=== PATIENT | male | born 1985 | race Caucasian/White ===

== ENCOUNTER → 2018-04-19 | Outpatient (CLI) | payer OTHER ==
[~2018-04-19] MED LIST: ISOVUE-370 76% 100ML VIAL (Q9967) As Ordered
== END ==
LOC: M RAD 09:50
DX: R59.0 Localized enlarged lymph nodes (principal)
CPT/HCPCS: Q9967

== ENCOUNTER 2018-06-05 05:31 | Day surgery (SDC) | payer OTHER ==
[2018-06-05] MEDS ORDERED: LIDOCAINE 2% INJ 100 MG/5 ML SDV (FOR ANES.) As Ordered ×2 (06:15)
[2018-06-05] MEDS ORDERED: ROCURONIUM BROMIDE 50 MG/5 ML VIAL As Ordered ×2 (06:15)
[2018-06-05] MEDS ORDERED: PROPOFOL 200 MG/20 ML VIAL As Ordered ×2 (06:15)
[2018-06-05] MEDS ORDERED: dexameTHASONE 4 MG/ML 1ML VIAL (J1100) As Ordered ×2 (06:15)
[2018-06-05] MEDS ORDERED: ONDANSETRON 4MG/2ML VIAL (J2405) As Ordered ×2 (06:16)
[2018-06-05] MEDS ORDERED: KETOROLAC 60 MG/2 ML VIAL (J1885) As Ordered ×2 (06:16)
[2018-06-05] MEDS: THROMBIN SOLN 20,000 UNITS KIT As Ordered ×2 (07:17)
[2018-06-05] MEDS: LIDOCAINE 1% SDV INJ 30 ML VIAL As Ordered ×2 (07:18)
[2018-06-05] MEDS: LIDOCAINE VISCOUS 2% SOLN 15ML UDC As Ordered ×2 (07:18)
[2018-06-05] MEDS: EPINEPHrine 1MG/10ML SYRINGE 1.5IN As Ordered ×2 (07:18)
[2018-06-05] MEDS: CETACAINE SPRAY 5GM As Ordered ×2 (07:44)
[2018-06-05] MEDS ORDERED: fentaNYL 250 MCG/5 ML INJECTION (J3010) As Ordered ×2 (07:51)
[2018-06-05] MEDS ORDERED: MIDAZOLAM INJ 2 MG/2 ML VIAL (J2250) As Ordered ×2 (07:51)
[2018-06-05] MEDS ORDERED: GLYCOPYRROLATE INJ 0.2 MG/ML 2 ML VIAL As Ordered ×2 (08:10)
[2018-06-05] MEDS ORDERED: NEOSTIGMINE 10 MG/10 ML VIAL (J2710) As Ordered ×2 (08:10)
[2018-06-05] MEDS ORDERED: LR 1,000 ML IV ×2 (09:00)
[2018-06-05] MEDS ORDERED: fentaNYL 100 MCG/2 ML INJECTION (J3010) IV ×2 (09:00)
[2018-06-05] MEDS ORDERED: PERCOCET 5MG/325MG TAB PO ×2 (09:00)
[2018-06-05] MEDS ORDERED: ONDANSETRON 4MG/2ML VIAL (J2405) IV ×2 (09:00)
== END 2018-06-05 09:45 | disposition home or self-care (01) ==
LOC: M SDC 05:31
DX: R59.0 Localized enlarged lymph nodes (principal); I10 Essential (primary) hypertension; K21.9 Gastro-esophageal reflux disease without esophagitis; Z79.899 Other long term (current) drug therapy; Z87.891 Personal history of nicotine dependence; G47.00 Insomnia, unspecified
CPT/HCPCS: 31652

== ENCOUNTER 2018-06-07 00:04 | Emergency (ER) | payer OTHER ==
[2018-06-07] MEDS: dexameTHASONE 20 MG/5 ML VIAL (J1100) IV (00:49)
[2018-06-07] MEDS ORDERED: diphenhydrAMINE INJ 50MG/ML VIAL (J1200) As Ordered (00:52)
[2018-06-07] MEDS: diphenhydrAMINE INJ 50MG/ML VIAL (J1200) IV (00:54)
[2018-06-07] MEDS: ALBUTEROL SULFATE 2.5 MG/0.5 ML INH NEB SOLN NEB (00:58)
== END 2018-06-07 03:28 | disposition home or self-care (01) ==
LOC: M ED 00:04
DX: J40 Bronchitis, not specified as acute or chronic (principal); Z98.890 Other specified postprocedural states; Z87.891 Personal history of nicotine dependence
CPT/HCPCS: J1200

== ENCOUNTER → 2018-12-07 | Outpatient (CLI) | payer OTHER ==
[~2018-12-07] MED LIST changes: +AMBI5TAB PO; -ISOVUE-370 76% 100ML VIAL (Q9967) As Ordered; +PRED20TA PO; +ZITHTAB PO
--- NOTE | 2018-12-07 14:21 | REP ---
Chest two views HISTORY: Sarcoidosis Comparison: 06/07/2018 The lungs are clear. The charlee are again noted to be prominent , however , they appear slightly decreased compared to the previous examination. The heart is normal in size. The pulmonary vasculature is normal in appearance. The bony structure is intact. IMPRESSION: The charlee are again noted to be prominent , however, this appears to be slightly decreased compared to the previous examination. Electronically Signed by Joni Byrnes MD 12/07/2018 02:12 P
== END ==
LOC: M SMT 11:59
PROVIDERS: ATTEND Physician Assistant
DX: D86.1 Sarcoidosis of lymph nodes (principal)